=== PATIENT | female | born 1995 | race Caucasian/White ===

== ENCOUNTER → 2017-05-22 | Outpatient (CLI) | payer MEDICAID ==
[~2017-05-22] MED LIST: BACTRIM DS 8001 TAB PO; CELEXA10 MG; IRON TABLETS325 MG PO; KEFLEX 500MG.500 MG PO; MACROBID 100MG100 M1 PO; NIFEDIPINE 10MG10 MG PO; PHENERGAN 25MG.25 M1 PO; PHENERGAN25 MG/M1 PO; PRENATAL PLUS1 TA1; PRENATAL PLUS1 TA1 PO; PROGESTERONE200 M1 VA; PYRIDIUM 200MG200 MG PO; SPRINTEC 35 MCG1 TAB PO; WELLBUTRIN 100100 M1 PO; ZOFRAN ODT4 MG PO; ZOFRAN4 MG PO; Zofran4 MG PO
== END ==
LOC: LAB 11:59
DX: Z34.80 Encounter for supervision of other normal pregnancy, unspecified trimester (principal)